=== PATIENT | female | born 1950 | race Caucasian/White ===

== ENCOUNTER → 2017-07-17 | Outpatient (CLI) | payer MEDICARE, OTHER ==
[~2017-07-17] MED LIST: ADULT LOW DOSE81 MG PO; AMARYL; AMBEREN; AMLODIPINE; BONIVA150 MG PO; CRESTOR5 MG; FISHOIL; HCTZ; LEVOTHYROXIN0.025 MG PO; LEXAPRO; METFORMIN; NORCO 5-325 TA1 EACH PO; PATANASE30.5 GM NS; SPIRIVA INH; VITAMIN D-32000 UNIT PO
== END ==
LOC: M.RAD 09:57
DX: Z12.31 Encounter for screening mammogram for malignant neoplasm of breast (principal)

== ENCOUNTER → 2019-07-22 | Outpatient (CLI) | payer MEDICARE, OTHER | LOC: M.RAD 08:29 | DX: Z12.31 Encounter for screening mammogram for malignant neoplasm of breast (principal) ==

== ENCOUNTER → 2020-01-03 | Outpatient (CLI) | payer MEDICARE, OTHER | LOC: M.CT 12:54 | PROVIDERS: ATTEND Family Medicine | DX: R91.1 Solitary pulmonary nodule (principal); M79.89 Other specified soft tissue disorders; I70.0 Atherosclerosis of aorta; I51.7 Cardiomegaly; I25.10 Atherosclerotic heart disease of native coronary artery without angina pectoris; N28.1 Cyst of kidney, acquired ==